=== PATIENT | female | born 1985 | race Caucasian/White ===

== ENCOUNTER 2019-07-21 09:56 | Day surgery (SDC) | payer BC, MEDICAID ==
[2019-07-21] MEDS: Lactated Ringers 1,000 ML IV SCH (10:28)
[2019-07-21] MEDS ORDERED: fentaNYL 100 MCG/2 ML SDV ONE (10:53)
[2019-07-21] MEDS ORDERED: Propofol 200 MG/20 ML SDV ONE ×3 (10:54→12:18)
[2019-07-21 15:03] VITALS: BP 133/73; PULSE 68
--- NOTE | 2019-07-21 19:13 | OR ---
DATE OF SURGERY: 07/21/2019. REFERRING PROVIDER: Bobbi Can MD PRE-OPERATIVE DIAGNOSES: 1. Diarrhea, chronic x1 year. Recent CT scan suggested colitis. 2. History of rectal bleeding, which occurs about once a week. 3. Positive family history of colon polyps in father who has to do colonoscopies yearly. 4. Positive family history of celiac disease, although, the patient reports normal tissue transglutaminase antibodies recently. POST-OPERATIVE DIAGNOSES: 1. Total of 5 polyps removed today using snare technique. a. 5 mm polyp at 80 cm, removed using cold snare. b. 5 mm polyp x2 at 40 cm, removed using hot snare. c. 6 mm polyp x2 at 20 cm, removed using hot snare. 2. Normal-appearing distal ilium. Cold biopsy x2 bites taken. 3. Grossly normal-appearing colonic mucosa without any evidence of colitis. Cold biopsy taken from each segment. Of note, a couple of the random biopsy sites to the right colon formed a small submucosal hematoma without any evidence of active bleeding. The patient does note a history of easy bleeding and bruising. 4. Inflamed, partially-inverted appendiceal orifice. Cold biopsy x4 bites taken. The patient denies any current right lower quadrant abdominal pain, but we will monitor for development of any. 5. Mild sigmoid diverticulosis. PROCEDURES: 1. Colonoscopy with polypectomy x5 (1 using cold snare and 4 using hot snare). 2. Cold biopsy using cold forceps from distal ilium, random colon, and cecum at appendiceal orifice. SURGEON: Phu Downs M.D. ANESTHESIA: Monitored anesthesia care. BOWEL PREP: Good. Qi is a 34-year-old female who was brought to the endoscopy suite after discussing risks and benefits of the procedure. Informed consent was obtained for conscious sedation and colonoscopy with or without biopsy and/or polypectomy. We also discussed possibility of missed lesions. Pre-procedure exam was unremarkable. IV, oxygen, and monitors were placed. The patient was placed in the left lateral decubitus position. Sedation was administered and a digital rectal exam was performed and unremarkable. Colonoscope was passed into the rectum and slowly advanced all the way to the cecum. Cecum was viewed and photographed. Of note, the appendiceal orifice appeared at least partially inverted and then inflamed. Cold biopsy x4 bites taken. Ileocecal valve was intubated and distal ileum was normal in appearance. Cold biopsy x2 bites taken from distal ileum. Colonoscope was slowly withdrawn and mucosa closely observed in direct circumferential manner. Random colon biopsies were taken from each segment. There was no evidence of any colitis noted. Otherwise, the ascending colon revealed 5 mm polyp at 80 cm, removed using cold snare. The transverse colon was unremarkable. The descending colon revealed a 5 mm polyp x2 at 40 cm, these were both removed using hot snare. The sigmoid colon revealed some mild diverticulosis. There was also 6 mm polyp x2 at 20 cm, both removed using hot snare. Rectal mucosa was unremarkable. Scope was removed. The patient tolerated the procedure well. The patient was monitored until that baseline status. Discharge instructions were reviewed and the patient was discharged in good condition. COMPLICATIONS: None. TOTAL TIME: 41 minutes. ESTIMATED BLOOD LOSS: About 2 mL. RECOMMENDATIONS/FOLLOW-UP: We will await results of path report to determine ideal followup interval as well as need for any further evaluation or testing. I would like to kindly thank Bobbi Can for this referral. DMB: 07/21/2019 13:23:41 MODL: 07/21/2019 19:04:37 /[id number]
== END 2019-07-21 13:40 | disposition home or self-care (01) ==
LOC: VM.SDS 09:56
PROVIDERS: ATTEND Family Medicine
DX: D12.2 Benign neoplasm of ascending colon (principal); D12.4 Benign neoplasm of descending colon; D12.5 Benign neoplasm of sigmoid colon; K52.9 Noninfective gastroenteritis and colitis, unspecified; K57.30 Diverticulosis of large intestine without perforation or abscess without bleeding; K91.61 Intraoperative hemorrhage and hematoma of a digestive system organ or structure complicating a digestive system procedure; F17.210 Nicotine dependence, cigarettes, uncomplicated; Z83.71 Family history of colonic polyps; Z83.79 Family history of other diseases of the digestive system; Z87.19 Personal history of other diseases of the digestive system; Z79.899 Other long term (current) drug therapy; Z88.0 Allergy status to penicillin
CPT/HCPCS: 45380; 45384; 45385; J2704; J3010; J7120